=== PATIENT | male | born 1980 | race Caucasian/White ===

== ENCOUNTER 2020-12-01 14:03 | Emergency (ER) | payer BC, SELFPAY ==
[2020-12-01 15:03] VITALS: BP 131/81; PULSE 82; RESP 16; TEMP 37.1; O2SAT 94; BMI 29.8
--- NOTE | 2020-12-01 15:16 | HMH.EDUTC ---
[facility] [place] Disposition Clinical Impression: Bronchitis, Exposure to COVID-19 virus, Viral syndrome Disposition: Home, Self-Care Condition on Discharge: Good Instructions: Preventing the Spread of Coronavirus Discharge Instructions Additional Instructions: Drink plenty of fluids. Take tylenol for pain or fever. Return if you begin to have difficulty breathing. Follow up with your regular doctor. GO TO THE ER FOR ANY WORSENING SYMPTOMS Prescriptions: predniSONE [Deltasone 10mg tablet] 10 mg PO BID 3 Days #6 tab Transmission Status: Received by [id number] Benzonatate [Tessalon Perle 100mg Cap] 100 mg PO TIDP PRN #30 cap PRN Reason: Cough Transmission Status: Received by [facility] Referrals: Rodríguez Franco MD [Primary Care Provider] - Time of Disposition: 15:39 Medical Decision Making - Medical Records Medical records reviewed: No: I reviewed the patient's medical records. - Akira Inquiry Pt receiving controlled substance: No Vital Signs: 12/01/20 15:03 12/01/20 15:42 Temperature 98.7 F 98.7 F Temperature Source Oral Oral Pulse Rate 82 Pulse Rate [Right Radial] 82 Respiratory Rate 16 14 Blood Pressure 131/81 Blood Pressure [Right Arm] 131/81 Blood Pressure Mean [Right Arm] 97 02 Sat by Pulse Oximetry 94 L Oxygen Delivery Method Room Air Room Air - Lab Data Lab Results 12/01/20 15:23: Influenza Type A Ag Negative, Influenza Type B Ag Negative [facility] [place] HPI - General Stated complaint: cough, increased HR, SOB Time Seen by Provider: 12/01/20 15:16 Mode of Arrival: Ambulatory Source of Information: Patient Limitations: No Limitations Description of Symptoms (Recalled from Triage Doc. by RN): cough, headache, fever HEENT Symptoms (Recalled from RN notes): No Resp Symptoms (Recalled from RN notes): Yes Skin Symptoms (Recalled from RN notes): No MS Symptoms (Recalled from RN notes): No Functional Status (Recalled from RN notes): na - History of Present Illness Provider Complaint: He states that for the past 1 day he has ran a fever, felt bad, had a cough and chest congestion. - Related Data Previous Rx's Medication Instructions Recorded Benzonatate [Tessalon Perle 100mg 100 mg PO TIDP PRN #30 cap 04/11/21 Cap] predniSONE [Deltasone 10mg tablet] 10 mg PO BID 3 Days #6 tab 12/01/20 - Worker's Comp Is this a Worker's Comp case?: No H History - Hepatitis A Screen Drug use history?: No High risk sexual behaviors?: No History of sexually transmitted infection?: No Currently employed?: No Childcare worker?: No Do you have indoor plumbing?: Yes Do you have electricity?: Yes Attestation statement:: This patient has been screened for Hepatitis A risk factors. I have reviewed the patient's past medical history: Yes ROS Obtained: Yes All systems reviewed & no additional complaints - Constitutional Constitutional: Reports body ache, Reports chills, Reports fever(s), Reports poor appetite, Reports malaise - Eyes Eyes: Denies eye discharge - ENT Ears, Nose, Mouth, and Throat: Reports as per HPI - Cardiovascular Cardiovascular: Denies chest pain - Respiratory Respiratory: Reports chest congestion, Reports cough, Denies dyspnea, Denies stridor, Denies wheezing Physical Exam - General General appearance: alert, in no apparent distress - Head Head exam: atraumatic, normocephalic, normal inspection - Eye Eye exam: Present: normal appearance, PERRL, EOMI - ENT ENT exam: Present: normal exam, normal oropharynx, mucous membranes moist, TM's normal bilaterally, normal external ear exam - Neck Neck exam: Present: normal inspection, full ROM, trachea midline. Absent: meningismus, lymphadenopathy - Chest Chest inspection: Present: normal inspection, symmetric chest wall rise. Absent: tenderness - Respiratory Respiratory exam: Present: normal lung sounds bilaterally. Absent: respiratory distress - Cardiovascular [facility]ova
--- NOTE | 2020-12-01 15:19 | XR_ITS ---
PROCEDURE: XR CHEST 2V CLINICAL HISTORY: cough, fever, COMPARISON: No exams were available for comparison FINDINGS: The cardiomediastinal silhouette and pulmonary vascularity are within normal limits. The lungs are clear without infiltrates, suspicious nodules, or pleural effusions. Mild upper thoracic curvature convex left. Prior kyphoplasty at L1. Mild wedging of T12 and L1 IMPRESSION: No acute findings. Dictated by: José Miguel Matta MD 12/01/2020 15:36 José Miguel Matta MD in [place] 12/01/2020 15:36
[2020-12-01 15:42] VITALS: BP 131/81; PULSE 82; RESP 14; TEMP 37.1; O2SAT 94
[2020-12-01 18:48] LABS: UTC Influenza A Antigen Negative (Negative)
[2020-12-01 18:49] LABS: UTC Influenza B Antigen Negative (Negative)
--- NOTE | 2020-12-01 18:51 | PC.NURSE ---
PATIENT NOTIFIED OF POSITIVE COVID TEST
== END 2020-12-01 15:43 | disposition home or self-care (01) ==
PROVIDERS: Emergency Provider Nurse Practitioner Family; PCP Family Medicine
DX: U07.1 COVID-19 (principal); J20.9 Acute bronchitis, unspecified
CPT/HCPCS: 71046; 87804; 99202; G0463; U0003

== ENCOUNTER → 2020-12-09 12:43 | Outpatient (CLI) | payer BC, SELFPAY ==
--- NOTE | 2020-12-09 12:50 | XR_ITS ---
PROCEDURE: XR CHEST PORTABLE CLINICAL HISTORY: COVID TESTING COMPARISON: CR XR CHEST 2V from 12/01/2020 FINDINGS: The cardiomediastinal silhouette and pulmonary vascularity are within normal limits. Faint consolidation is present in the right midlung laterally suggesting an area of infiltrate. There is also fate increased density left mid to lower lung zone laterally which could be due to an area of ground-glass infiltrate. No acute bony abnormalities. IMPRESSION: Ground-glass opacification in both mid lung zones laterally suspicious for underlying infiltrate which may be due to atypical pneumonia/Covid19 Dictated by: José Miguel Matta MD 12/09/2020 17:08 José Miguel Matta MD in [facility] 12/09/2020 17:08
[2020-12-09 13:50] LABS: Basophils % 0.5 % (0.1-2.0); Eosinophils % 0.3 % (0.1-12.0); Hemoglobin 15.3 g/dL (14.1-18.0); Lymphocytes # 0.7 K/mm3 (0.7-4.5); Lymphocytes % 22.7 % (10-50); Mean Corpuscular HGB Conc 33.4 g/dL (31.8-35.4); Mean Corpuscular Hemoglobin 28.3 pg (27.0-31.2); Mean Platelet Volume 7.8 fl (7.4-10.4); Monocytes # 0.1 K/mm3 (0.1-1.0); Monocytes % 3.8 % (1.7-9.3); Neutrophils # 2.4 K/mm3 (1.8-7.8); Neutrophils % 72.6 % (37.0-80.0); Platelet Count 137 K/mm3 (142-424); Red Blood Count 5.42 M/mm3 (4.60-6.20); Red Cell Distribution Width 13.2 % (11.5-17.5); White Blood Count 3.3 K/mm3 (4.8-10.8)
== END ==
PROVIDERS: PCP Family Medicine; Visit Provider Nurse Practitioner Family
DX: Z20.822 Contact with and (suspected) exposure to COVID-19 (principal); U07.1 COVID-19
CPT/HCPCS: 36415; 71045; 85025

== ENCOUNTER → 2020-12-20 10:04 | Outpatient (CLI) | payer BC, SELFPAY ==
--- NOTE | 2020-12-20 10:08 | XR_ITS ---
PROCEDURE: XR CHEST 2V CLINICAL HISTORY: PNEUMONIA COMPARISON: CR XR CHEST 2V from 12/01/2020 CR XR CHEST PORTABLE from 12/09/2020 FINDINGS: The cardiomediastinal silhouette and pulmonary vascularity are within normal limits. The lungs are clear without infiltrates, suspicious nodules, or pleural effusions. Mild upper thoracic curvature convex left. Prior kyphoplasty with wedging at T12. IMPRESSION: No acute findings. Dictated by: José Miguel Matta MD 12/20/2020 10:28 José Miguel Matta MD in [facility] 12/20/2020 10:28
== END ==
PROVIDERS: PCP Family Medicine; Visit Provider Nurse Practitioner Family
DX: J18.9 Pneumonia, unspecified organism (principal)
CPT/HCPCS: 71046